=== PATIENT | male | born 1995 | race Caucasian/White ===

== ENCOUNTER 2016-07-30 21:04 | Emergency (ER) | payer OTHER ==
[2016-07-30] MEDS ORDERED: Sodium Chloride 0.9% 10 ML Syringe FLUSH PRN (21:37)
[2016-07-30] MEDS ORDERED: Ondansetron 4 MG/2 ML SDV IVPUSH ONE (21:40)
[2016-07-30] MEDS ORDERED: Sodium Chloride 0.9% 1,000 ML IV ONE (21:40)
[2016-07-30 22:38] LABS: CHLORIDE,CL 104 mmol/L (98-107); SODIUM,NA 142 mmol/L (136-145)
[2016-07-30] MEDS ORDERED: Take Home: Ondansetron 4 MG Tab.DIS, 2 Tab Pack PO ONE (23:17)
[2016-07-31 11:11] VITALS: BP 116/85
--- NOTE | 2016-08-10 07:56 | ER ---
Date of Service: 07/30/2016 SUBJECTIVE: Adolfo presents to the emergency room with fever, chills, nausea, and vomiting for the past 5 to 7 days. The patient states that he has not been around any ill contacts. The patient states that he does not feel he is drinking enough water. He states that he does not feel like drinking. The patient complains that he is experiencing some epigastric pain that is made worse with his vomiting. He states that he is not experiencing any diarrhea. PAST MEDICAL HISTORY: None. MEDICATIONS: Tums. ALLERGIES: NKDA. REVIEW OF SYSTEMS: General: Positive for fever and chills. HEENT: Positive for congestion. Denies any visual disturbances. Cardiac: Denies any substernal chest pain. No jaw, arm, neck, or back pain. Respiratory: No shortness of breath. GI: No nausea, vomiting, or diarrhea. No melena, hematochezia, or hematemesis. : Denies any dysuria. Musculoskeletal: No myalgias or arthralgias. PHYSICAL EXAMINATION: General: A 20-year-old male patient, in no acute distress. Vital Signs: Blood pressure is 111/92, pulse rate initially was 120 and this decreased to 97 after a liter of normal saline, respiratory rate is 16, and O2 saturations 97%. Skin: Warm, pink, and dry. HEENT: Head is normocephalic. Mouth, oral mucosa is very dry. No erythema or exudate noted in the hypopharynx. Ears, TMs are clear. Neck: Supple without masses. There is no lymphadenopathy. Lungs: Clear to auscultation. Heart: Regular rate and rhythm. Abdomen: Soft, nontender. There is no hepatosplenomegaly noted. There are no masses noted. Extremities: Without edema. Neurologic: The patient is alert and oriented. Answers all questions appropriately. His speech is fluent. His gait is within normal limits. LABORATORY DATA: WBCs 12.1, hemoglobin is 16.3, and platelets are 291. Chemistry; comprehensive metabolic panel was obtained and was all noted to be within normal limits. C-reactive protein mildly elevated at 2.6. Urinalysis was obtained. Specific gravity is 1.030. This is after a liter of normal saline. Did have a trace of protein and a trace of intact occult blood. Negative leukocytes and nitrites. Urine toxicology was negative. One-view chest x-ray and KUB were obtained. There was no evidence of any acute pathology. Influenza A and B swab were obtained and were negative. EMERGENCY ROOM COURSE: IV access was established. The patient was given a liter of normal saline IV and Zofran 4 mg IV. He did report significant improvement on how he was feeling. He remained stable in my care in the emergency room. ASSESSMENT: 1. Viral illness. 2. Dehydration. PLAN: The patient was given Zofran ODT tablets 4 mg tablets with instructions to take 1 every 8 hours as needed for nausea and vomiting. Tylenol and ibuprofen for fever and discomfort. I would like him to follow up in the clinic in the next 7 to 10 days for recheck and return sooner if he is not gradually improving. All questions were answered. SIMÓNK: 08/09/2016 16:35:06 MODL: 08/10/2016 00:19:31 /[id number]
== END 2016-07-30 23:35 | disposition home or self-care (01) ==
LOC: VM.ED 21:04
DX: B34.9 Viral infection, unspecified (principal); E86.0 Dehydration
CPT/HCPCS: 74022; 80053; 80305; 81001; 83605; 85025; 86140; 87804; 96361; 96374; 99284; A9270; J2405; J7030